=== PATIENT | male | born 1980 | race African-American/Black ===

== ENCOUNTER 2017-12-28 19:46 | Emergency (ER) | payer SELFPAY ==
[~2017-12-28] VITALS: Ht 180.3 cm; Wt 81.6 kg
[2017-12-28] MEDS ORDERED: IV NORMAL SALINE 1,000ML 1,000 ML IV SCH (20:04)
[2017-12-28] MEDS ORDERED: ONDANSETRON PF 4 MG/2 ML VIAL. IV ONE (20:15)
[2017-12-28] MEDS ORDERED: 0.9 % SODIUM CHLORIDE 10 ML DISP.SYRIN. IV PRN (20:15)
--- NOTE | 2017-12-28 20:33 | PHYS DOC ---
Past History Past Medical History: No Pertinent History Adult General Chief Complaint Chief Complaint: NAUSEA/VOMITING/DIARRHEA HPI HPI 37-year-old male patient complaining of frequent episodes of nausea and vomiting since 4 AM and states he vomited more than 20 times. Patient states he had bile material vomiting without any blood. Patient denies diarrhea and constipation and abdominal pain. Patient states he had pork chop last night and he thinks it caused his nausea and vomiting. Patient did not have sick contacts at home. History is limited because of active vomiting of patient and most of history was taking from patient friend. Review of Systems Review of Systems Constitutional: Denies fever or chills [] Eyes: Denies change in visual acuity, redness, or eye pain [] HENT: Denies nasal congestion or sore throat [] Respiratory: Denies cough or shortness of breath [] Cardiovascular: No additional information not addressed in HPI [] GI: Reports abdominal pain, nausea, vomiting, denies bloody stools or diarrhea [ ] : Denies dysuria or hematuria [] Musculoskeletal: Denies back pain or joint pain [] Integument: Denies rash or skin lesions [] Neurologic: Denies headache, focal weakness or sensory changes [] Endocrine: Denies polyuria or polydipsia [] All other systems were reviewed and found to be within normal limits, except as documented in this note. Current Medications Current Medications Current Medications Medications (Trade) Dose Ordered Sig/Greg Start Time Stop Time Status Last Admin Dose Admin Ondansetron HCl (Zofran) 4 mg 1X ONCE 12/28/17 20:15 12/28/17 20:16 UNV Sodium Chloride (Normal Saline Flush) 10 ml QSHIFT PRN 12/28/17 20:15 UNV Allergies Allergies Allergies Coded Allergies Type Severity Reaction Last Updated Verified acetaminophen Allergy Intermediate hives 12/28/17 Yes Physical Exam Physical Exam Constitutional: Well developed, well nourished, moderate distress, non-toxic appearance. [] HENT: Normocephalic, atraumatic, dry oral mucosa Eyes: PERRLA, EOMI, conjunctiva normal, no discharge. [] Neck: Normal range of motion, no tenderness, supple, no stridor. [] Cardiovascular:Heart rate regular rhythm, no murmur [] Lungs & Thorax: Bilateral breath sounds clear to auscultation [] Abdomen: Bowel sounds normal, soft, no tenderness, no masses, no pulsatile masses. [] Skin: Warm, dry, no erythema, no rash. [] Back: No tenderness, no CVA tenderness. [] Extremities: No tenderness, no cyanosis, no clubbing, ROM intact, no edema. [] Neurologic: Alert and oriented X 3, normal motor function, normal sensory function, no focal deficits noted. [] EKG EKG [] Radiology/Procedures Radiology/Procedures [] [address] [address] IMAGING REPORT Signed PATIENT: SOUMYA AVITIA ACCOUNT: [id number] : 1980 LOCATION: ER AGE: 37 SEX: M EXAM STATUS: REG ER ORD. PHYSICIAN: JENNIFER ROSENBERG MD REASON: intractable vomiting PROCEDURE: CT ABD PELV W/ IV CONTRST ONLY CT abdomen and pelvis with contrast 12/28/2017 Clinical indication: Nausea, vomiting and diarrhea. COMPARISON: None. TECHNIQUE: Multiple CT images of the abdomen and pelvis were obtained following intravenous and ministration of 75 mL Omnipaque 300. *One or more of the following individualized dose reduction techniques were utilized for this examination: 1. Automated exposure control. 2. Adjustment of the mA and/or kV according to patient size. 3. Use of iterative reconstruction technique. FINDINGS: Heart size is normal. Visualized lung bases are clear. Liver, spleen, adrenal glands, pancreas, gallbladder and kidneys are unremarkable apart from a subcentimeter hypodensity in the inferior pole of the right kidney which is too small to definitively characterize, though statistically likely a cyst. No hydronephrosis. Abdominal aorta is normal in caliber. No retroperitoneal or mesenteric lymphadenopathy. There is a small hiatal hernia. Small and large bowel loops are normal in caliber without obstruction. Appendix is not discretely identified, however no secondary findings of appendicitis at the base of the cecum. Urinary bladder, prostate seminal vesicles are unremarkable. No iliac or inguinal lymphadenopathy. There is grade 1 retrolisthesis L5 on S1. IMPRESSION: 1. No CT evidence of acute abdominal or pelvic process. 2. Appendix is not clearly identified, though no secondary findings of appendicitis at the base of the cecum. 3. Tiny hiatal hernia. Electronically signed by: Adan Mota MD (12/28/2017 11:36 PM) [facility] DICTATED AND SIGNED BY: ADAN MOTA MD DATE: 12/28/17 9702 CC: JENNIFER ROSENBERG MD; PCP,FRANCOISE ~ Course & Med Decision Making Course & Med Decision Making Pertinent Labs and Imaging studies reviewed. (See chart for details) Evaluation of patient in ER showed 37-year-old male patient with frequent episodes of nausea and vomiting that continued in ER, patient had unremarkable labs and CT abdomen and pelvis. Patient had 2 L of normal saline and Zofran and Reglan and finally felt better. Patient instructed to take liquid diet for 24 hours and return to ER if vomiting more than 2 or 3 times. [] Dragon Disclaimer Dragon Disclaimer This electronic medical record was generated, in whole or in part, using a voice recognition dictation system. Departure Departure: Impression: Primary Impression: Acute gastritis Disposition: HOME, SELF-CARE (At 2351) Condition: IMPROVED Referrals: PCP,FRANCOISE (PCP) Patient Instructions: Nausea and Vomiting Additional Instructions: Drink plenty of liquids Follow-up with your primary care physician in 3-5 days Return to ER if not getting better Scripts Ondansetron (ZOFRAN ODT) 4 Mg Tab.rapdis 1 TAB SL Q8HRS, #15 TAB Prov: JENNIFER ROSENBERG MD 12/28/17 JENNIFER ROSENBERG MD Dec 28, 2017 20:33
[2017-12-28 20:53] LABS: BASO % 0 % (0-3); EOS % 0 % (0-3); HEMOGLOBIN 15.2 g/dL (13.0-17.5); LYMPH # 1.9 x10^3/uL (1.0-4.8); LYMPH % 16 % (24-48); MEAN CORPUSCULAR HEMOGLOBIN 30 pg (25-35); MEAN CORPUSCULAR HGB CONC 33 g/dL (31-37); MEAN CORPUSCULAR VOLUME 91 fL (79-100); MONO # 0.8 x10^3/uL (0.0-1.1); MONO % 7 % (0-9); NEUT % 77 % (31-73); PLATELET COUNT 382 x10^3/uL (140-400); RED BLOOD COUNT 5.04 x10^6/uL (4.30-5.70); RED CELL DISTRIBUTION WIDTH 13.5 % (11.5-14.5); WHITE BLOOD COUNT 11.8 x10^3/uL (4.0-11.0)
[2017-12-28 21:05] LABS: ALBUMIN 4.4 g/dL (3.4-5.0); CREATININE 1.3 mg/dL (0.7-1.3); GFR 75.6; POTASSIUM 3.8 mmol/L (3.5-5.1); TOTAL BILIRUBIN 0.3 mg/dL (0.2-1.0); TOTAL PROTEIN 8.8 g/dL (6.4-8.2)
[2017-12-28] MEDS ORDERED: IV NORMAL SALINE 1,000ML 1,000 ML IV ONE (21:30)
[2017-12-28] MEDS ORDERED: METOCLOPRAMIDE HCL 10 MG/2 ML VIAL. IV ONE (21:30)
[2017-12-28 23:00] LABS: CLARITY,URINE CLEAR; COLOR,URINE YELLOW
[2017-12-28] MEDS ORDERED: IOHEXOL 300 MG/ML 75 ML VIAL. IV ONE (23:00)
[2017-12-28 23:01] LABS: BACTERIA,URINE 0 /HPF (0-FEW); BILIRUBIN,URINE NEG (NEG); GLUCOSE,URINE NEG (NEG); NITRITE,URINE NEG (NEG); RBC,URINE 0 /HPF (0-2); SQUAMOUS EPITHELIAL CELL,UR OCC /LPF; UROBILINOGEN,URINE 0.2 mg/dL (0.2 mg/dL); WBC,URINE OCC /HPF (0-4)
--- NOTE | 2017-12-28 23:39 | RAD ---
CT abdomen and pelvis with contrast 12/28/2017 Clinical indication: Nausea, vomiting and diarrhea. COMPARISON: None. TECHNIQUE: Multiple CT images of the abdomen and pelvis were obtained following intravenous and ministration of 75 mL Omnipaque 300. *One or more of the following individualized dose reduction techniques were utilized for this examination: 1. Automated exposure control. 2. Adjustment of the mA and/or kV according to patient size. 3. Use of iterative reconstruction technique. FINDINGS: Heart size is normal. Visualized lung bases are clear. Liver, spleen, adrenal glands, pancreas, gallbladder and kidneys are unremarkable apart from a subcentimeter hypodensity in the inferior pole of the right kidney which is too small to definitively characterize, though statistically likely a cyst. No hydronephrosis. Abdominal aorta is normal in caliber. No retroperitoneal or mesenteric lymphadenopathy. There is a small hiatal hernia. Small and large bowel loops are normal in caliber without obstruction. Appendix is not discretely identified, however no secondary findings of appendicitis at the base of the cecum. Urinary bladder, prostate seminal vesicles are unremarkable. No iliac or inguinal lymphadenopathy. There is grade 1 retrolisthesis L5 on S1. IMPRESSION: 1. No CT evidence of acute abdominal or pelvic process. 2. Appendix is not clearly identified, though no secondary findings of appendicitis at the base of the cecum. 3. Tiny hiatal hernia. Electronically signed by: Elias Hurt MD (12/28/2017 11:36 PM) [facility]
[2017-12-28] MEDS ORDERED: ONDA4TAB10 SL (23:53)
[2017-12-29] MEDS ORDERED: ONDANSETRON PF 4 MG/2 ML VIAL. IV ONE
[2017-12-29] MEDS ORDERED: ONDANSETRON 4MG ODT 4TABLET STARTPACK. PO ONE
[2017-12-29 00:15] VITALS: BP 130/75
== END 2017-12-29 00:15 | disposition home or self-care (01) ==
LOC: ER 19:46
DX: K29.00 Acute gastritis without bleeding (principal); Z88.6 Allergy status to analgesic agent
CPT/HCPCS: 36415; 74177; 80053; 81001; 83690; 85025; 96361; 96374; 96375; 96376; 99285; J2405; J2765; Q0162; Q9967; J7030